=== PATIENT | female | born 1945 | race Caucasian/White ===

== ENCOUNTER 2022-05-29 14:10 | Inpatient (IN) ==
[2022-05-29] MEDS ORDERED: Acetaminophen IV 1 GM/100ML 1,000 MG/100 ML BAG IV PRN (17:45)
[2022-05-29 17:48] LABS: Hematocrit 33 % (35-47); Hemoglobin 10.3 g/dL (12.0-16.0); Mean Corpuscular HGB Conc 31 g/dL (31-36); Mean Corpuscular Hemoglobin 26 pg (27-31); Mean Corpuscular Volume 83 fL (80-97); Mean Platelet Volume 6.9 fL (7.4-10.4); Platelet Count 484 10^3/uL (150-450); Red Cell Distribution Width 17 % (10-15); White Blood Count 7.8 10^3/uL (3.5-10.8)
[2022-05-29] MEDS ORDERED: Heparin 5000 UNITS/ML 1 mL VIAL SUBCUT SCH (18:00)
[2022-05-29 18:21] LABS: Calcium 9.4 mg/dL (8.6-10.3); Creatinine, Serum 0.84 mg/dL (0.51-0.95); Potassium 3.8 mmol/L (3.5-5.0); eGFR CKD-EPI 70.6 (>60)
[2022-05-29 19:35] LABS: Ferritin 32.8 ng/mL (11-307)
[2022-05-29 19:38] LABS: Folate 17.3 ng/mL (5.90-24.80)
[2022-05-30 07:17] LABS: ABS Basophils 0.1 10^3/ul (0-0.2); ABS Eosinophils 0.4 10^3/ul (0-0.6); ABS Lymphocytes 1.4 10^3/ul (1.0-4.8); ABS Monocytes 0.5 10^3/ul (0-0.8); ABS Neutrophils 3.5 10^3/ul (1.5-7.7); Eosinophil % 6.4 %; Hematocrit 31 % (35-47); Lymphocyte % 23.9 %; Mean Corpuscular HGB Conc 32 g/dL (31-36); Mean Corpuscular Hemoglobin 27 pg (27-31); Mean Corpuscular Volume 83 fL (80-97); Mean Platelet Volume 7.3 fL (7.4-10.4); Nucleated Red Blood Cells % 0.1; Platelet Count 420 10^3/uL (150-450); Red Cell Distribution Width 17 % (10-15); White Blood Count 5.9 10^3/uL (3.5-10.8)
[2022-05-30 07:18] LABS: INR 1.31 (0.88-1.18)
[2022-05-30 07:43] LABS: Calcium 8.6 mg/dL (8.6-10.3); Creatinine, Serum 0.71 mg/dL (0.51-0.95); Magnesium 2.2 mg/dL (1.9-2.7); Potassium 3.7 mmol/L (3.5-5.0); eGFR CKD-EPI 86.4 (>60)
[2022-05-30] MEDS ORDERED: Lidocaine 2% PF 5 ML VIAL ONE (08:08)
[2022-05-30] MEDS ORDERED: fentaNYL 100 mcg/2 ml 50 MCG/ML VIAL ONE ×2 (08:08→10:03)
[2022-05-30] MEDS ORDERED: Propofol 10 MG/ML 20 ML BTL ONE (08:08)
[2022-05-30] MEDS ORDERED: Rocuronium 50 mg VIAL 10 mg/ml 5 ml VIAL (50 mg) ONE (08:09)
[2022-05-30] MEDS ORDERED: Lidocaine 1% 50 ML MDV VIAL ONE (08:15)
[2022-05-30] MEDS ORDERED: Lidocaine 1.5% EPI 1:200,000 30 ML SDV ONE (08:15)
[2022-05-30] MEDS ORDERED: Bupivacaine 0.5% 50 ML MDV VIAL ONE (08:16)
[2022-05-30] MEDS ORDERED: Phenylephrine 40 mcg/mL 10mL (400mcg) SYRINGE ONE (09:13)
[2022-05-30] MEDS ORDERED: Phenylephrine IV 10 MG/ML 1 ml VIAL ONE (09:14)
[2022-05-30] MEDS ORDERED: ceFAZolin 1 GM ADVAN 1 GM ADDV.VIAL IVPB ONE (09:19)
[2022-05-30] MEDS ORDERED: Glycopyrrolate IV 0.2 MG/ML 1 ML VIAL ONE (09:38)
[2022-05-30] MEDS ORDERED: Dexamethasone IV 4 MG/ML VIAL 1 ml VIAL ONE (09:43)
[2022-05-30] MEDS ORDERED: Ondansetron 4 mg VIAL 2 MG/ML 2 ml VIAL ONE (11:09)
[2022-05-30] MEDS ORDERED: Sugammadex 500 MG/5 ML 5 ml VIAL IV PUSH ONE (11:15)
[2022-05-30] MEDS ORDERED: HYDROcodone/ACETAMIN 5/325 mg TAB PO PRN (12:02)
[2022-05-30] MEDS ORDERED: fentaNYL 100 mcg/2 ml 50 MCG/ML VIAL IV PRN (12:02)
[2022-05-30] MEDS ORDERED: Naloxone 0.4 mg VIAL 0.4 mg/ml 1 ml VIAL IV PRN (12:02)
[2022-05-30] MEDS ORDERED: Prochlorperazine 5 mg/ml 2 ml VIAL (10 mg) IV PRN (12:02)
[2022-05-30] MEDS ORDERED: Cyanocobalamin INJ 1,000 MCG/ML VIAL 1 ML VIAL IM ONE (13:31)
[2022-05-30] MEDS ORDERED: Magnesium Hydroxide LIQ 30 ML UDC PO PRN (13:36)
[2022-05-30] MEDS ORDERED: Senna TAB 8.6 mg TAB PO PRN (13:36)
[2022-05-30] MEDS ORDERED: Polyethylene Glycol 3350 17 GM PACKET PO PRN (13:36)
[2022-05-30] MEDS ORDERED: Enoxaparin 40 MG/0.4 ML SYR SUBCUT SCH (14:00)
[2022-05-31 06:19] LABS: ABS Lymphocytes 1.4 10^3/ul (1.0-4.8); ABS Monocytes 1.5 10^3/ul (0-0.8); ABS Neutrophils 9.1 10^3/ul (1.5-7.7); Eosinophil % 0.1 %; Hematocrit 28 % (35-47); Hemoglobin 8.9 g/dL (12.0-16.0); Lymphocyte % 11.8 %; Mean Corpuscular HGB Conc 32 g/dL (31-36); Mean Corpuscular Hemoglobin 26 pg (27-31); Mean Corpuscular Volume 83 fL (80-97); Platelet Count 386 10^3/uL (150-450); Red Cell Distribution Width 17 % (10-15); White Blood Count 12.1 10^3/uL (3.5-10.8)
[2022-05-31 06:38] LABS: Calcium 8.6 mg/dL (8.6-10.3); Creatinine, Serum 0.85 mg/dL (0.51-0.95); Potassium 3.9 mmol/L (3.5-5.0); eGFR CKD-EPI 69.6 (>60)
[2022-06-01 06:04] LABS: ABS Basophils 0.1 10^3/ul (0-0.2); ABS Eosinophils 0.1 10^3/ul (0-0.6); ABS Lymphocytes 1.7 10^3/ul (1.0-4.8); ABS Monocytes 0.9 10^3/ul (0-0.8); ABS Neutrophils 7.9 10^3/ul (1.5-7.7); Hematocrit 27 % (35-47); Hemoglobin 8.4 g/dL (12.0-16.0); Lymphocyte % 15.9 %; Mean Corpuscular HGB Conc 31 g/dL (31-36); Mean Corpuscular Hemoglobin 26 pg (27-31); Mean Corpuscular Volume 84 fL (80-97); Mean Platelet Volume 7.3 fL (7.4-10.4); Platelet Count 347 10^3/uL (150-450); Red Blood Count 3.27 10^6 /uL (3.70-4.87); Red Cell Distribution Width 17 % (10-15); White Blood Count 10.7 10^3/uL (3.5-10.8)
[2022-06-02 05:37] LABS: Hematocrit 26 % (35-47); Hemoglobin 7.9 g/dL (12.0-16.0); Mean Corpuscular HGB Conc 31 g/dL (31-36); Mean Corpuscular Hemoglobin 26 pg (27-31); Mean Corpuscular Volume 83 fL (80-97); Platelet Count 346 10^3/uL (150-450); Red Blood Count 3.07 10^6 /uL (3.70-4.87); Red Cell Distribution Width 17 % (10-15); White Blood Count 10.1 10^3/uL (3.5-10.8)
[2022-06-02 17:30] LABS: Rapid COVID-19 Molecular Undetected (Undetected)
[2022-06-03 05:41] LABS: ABS Eosinophils 0.1 10^3/ul (0-0.6); ABS Lymphocytes 1.4 10^3/ul (1.0-4.8); ABS Monocytes 0.7 10^3/ul (0-0.8); ABS Neutrophils 5.3 10^3/ul (1.5-7.7); Eosinophil % 1.4 %; Hematocrit 24 % (35-47); Hemoglobin 7.6 g/dL (12.0-16.0); Lymphocyte % 18.4 %; Mean Corpuscular HGB Conc 32 g/dL (31-36); Mean Corpuscular Hemoglobin 26 pg (27-31); Mean Corpuscular Volume 83 fL (80-97); Mean Platelet Volume 7.3 fL (7.4-10.4); Platelet Count 351 10^3/uL (150-450); Red Blood Count 2.91 10^6 /uL (3.70-4.87); Red Cell Distribution Width 17 % (10-15); White Blood Count 7.5 10^3/uL (3.5-10.8)
[2022-06-03 06:21] LABS: Calcium 8.3 mg/dL (8.6-10.3); Creatinine, Serum 0.54 mg/dL (0.51-0.95); Potassium 4.2 mmol/L (3.5-5.0); eGFR CKD-EPI 93.6 (>60)
[2022-06-03 11:26] VITALS: BP 129/66
== END 2022-06-03 12:58 | DRG 502 ==
LOC: MED 14:10 → ED 14:10 → EDHOLD 14:10 → MED 23:56 → SUATTDRO 05-30 11:00 → SSU 05-31 12:34
PROVIDERS: ADMIT Hospitalist; ATTEND Internal Medicine